=== PATIENT | female | born 1970 | race Caucasian/White ===

== ENCOUNTER 2018-01-30 21:42 | Emergency (ER) | payer BC ==
[~2018-01-30] VITALS: Ht 160 cm; Wt 53.0 kg
[~2018-01-30 21:42] MED LIST: CYCL-1 PO; SERT25TA PO
[2018-01-31] MEDS ORDERED: acetaminophen 325mg tablet PO ONE (00:35)
[2018-01-31] MEDS ORDERED: ondansetron/PF 4mg/2ml inj IV ONE (03:45)
[2018-01-31] MEDS ORDERED: benzonatate 100mg capsule PO ONE (03:45)
[2018-01-31] MEDS ORDERED: normal saline 1000ML IV soln IVB ONE ×2 (03:45)
[2018-01-31] MEDS ORDERED: ibuprofen 200mg tablet PO ONE (04:05)
[2018-01-31 04:36] LABS: BASOPHILS % (AUTO) 0.3 % (0-1); EOSINOPHILS # (AUTO) 0.1 X10'3 (0-0.9); EOSINOPHILS % (AUTO) 1.4 % (0-6); HEMATOCRIT 37.3 % (35.0-45.0); HEMOGLOBIN 13.1 g/dl (12.0-16.0); LYMPHOCYTES # (AUTO) 0.9 X10'3 (1.1-4.8); LYMPHOCYTES % (AUTO) 14.2 % (21-51); MEAN CORPUSCULAR HEMOGLOBIN 32.3 PG (27.0-31.0); MEAN CORPUSCULAR HGB CONC 35.3 % (33.0-36.5); MEAN CORPUSCULAR VOLUME 91.4 FL (78-98); MEAN PLATELET VOLUME 7.1 FL (7.4-10.4); MONOCYTES # (AUTO) 0.7 X10'3 (0-0.9); NEUTROPHILS # (AUTO) 4.9 X10'3 (1.8-7.7); NEUTROPHILS % (AUTO) 74.1 % (42-75); PLATELET COUNT 332 X10'3 (140-440); RED BLOOD COUNT 4.08 X10'6 (4.20-5.60); RED CELL DISTRIBUTION WIDTH 13.1 % (11.5-14.5); WHITE BLOOD COUNT 6.6 X10'3 (4.5-11.0)
[2018-01-31 04:47] LABS: HCG SERUM QL NEGATIVE
[2018-01-31 04:53] LABS: ALANINE AMINOTRANSFERASE 84 U/L (12-78); ALBUMIN 3.3 G/DL (3.4-5.0); ALBUMIN/GLOBULIN RATIO 0.9 (1.1-1.5); ALKALINE PHOSPHATASE 59 IU/L (46-116); ANION GAP 11 (8-16); ASPARTATE AMINO TRANSFERASE 61 U/L (10-37); BILIRUBIN,TOTAL 0.5 MG/DL (0.1-1.0); BLOOD UREA NITROGEN 10 MG/DL (7-18); BUN/CREATININE RATIO 14.3 (6.6-38.0); CALCIUM 8.3 MG/DL (8.5-10.1); CHLORIDE 107 MMOL/L (99-107); GLUCOSE 97 MG/DL (70-104); LIPASE 108 U/L (73-393); POTASSIUM 3.4 MMOL/L (3.5-5.1); SODIUM 141 MMOL/L (135-145); TOTAL CARBON DIOXIDE 23.3 MMOL/L (24-32); TOTAL PROTEIN 6.8 G/DL (6.4-8.2); eGFR 90 ML/MIN
[2018-01-31 05:01] LABS: CLARITY,URINE CLEAR (Clear); COLOR,URINE STRAW (Yellow); GLUCOSE, URINE NEGATIVE (Neg); KETONES,URINE NEGATIVE (Neg); LEUKOCYTE ESTERASE ,URINE NEGATIVE (Neg); NITRITES, URINE NEGATIVE (Neg); OCCULT BLOOD,URINE NEGATIVE (Neg); PH,URINE 5.5 (4.8-8.0); PROTEIN,URINE NEGATIVE (Neg); UROBILINOGEN,URINE 0.2 E.U/dL (0.2-1.0)
[2018-01-31 05:04] LABS: UA COLLECTION TYPE CLN CATCH MIDSTREAM
[2018-01-31] MEDS ORDERED: MORPHINE 2MG in 2ml NS syringe IV PRN (05:45)
[2018-01-31] MEDS ORDERED: oseltamivir phos 75mg capsule PO ONE (05:55)
[2018-01-31] MEDS ORDERED: oxyCODONE IR 5mg (immed. release) tablet PO ONE (06:05)
[2018-01-31] MEDS ORDERED: BENZ-16 PO (06:05)
[2018-01-31] MEDS ORDERED: TAM75C PO (06:05)
[2018-01-31] MEDS ORDERED: ONDA8TAB13 PO (06:05)
[2018-01-31 06:35] VITALS: BP 110/62
== END 2018-01-31 06:41 | disposition home or self-care (01) ==
LOC: ER 21:43
DX: J09.X2 Influenza due to identified novel influenza A virus with other respiratory manifestations (principal); Z88.6 Allergy status to analgesic agent; Z79.899 Other long term (current) drug therapy
CPT/HCPCS: 36415; 71046; 80053; 81003; 83605; 83690; 84703; 85025; 87040; 87502; 87503; 96361; 96374; 99285; J2405; J7030

== ENCOUNTER 2018-04-01 11:00 | Inpatient (IN) | payer BC ==
[2018-04-01] VITALS (18 sets, daily range): BP systolic 100–124; BP diastolic 64–75
[~2018-04-01] VITALS: Ht 160 cm; Wt 58.0 kg
[~2018-04-01 11:00] MED LIST changes: +ONDA8TAB13 PO
[2018-04-01 11:34] LABS: CLARITY,URINE CLEAR (Clear); COLOR,URINE STRAW (Yellow); GLUCOSE, URINE NEGATIVE (Neg); KETONES,URINE 15 mg/dl (Neg); LEUKOCYTE ESTERASE ,URINE NEGATIVE (Neg); NITRITES, URINE NEGATIVE (Neg); OCCULT BLOOD,URINE NEGATIVE (Neg); PROTEIN,URINE NEGATIVE (Neg); URINE HCG NEGATIVE (NEG); UROBILINOGEN,URINE 0.2 E.U/dL (0.2-1.0)
[2018-04-01 11:36] LABS: UA COLLECTION TYPE CLN CATCH MIDSTREAM
[2018-04-01 11:37] LABS: BASOPHILS # (AUTO) 0.1 X10'3 (0-0.2); BASOPHILS % (AUTO) 0.3 % (0-1); EOSINOPHILS % (AUTO) 0 % (0-6); HEMATOCRIT 38.8 % (35.0-45.0); HEMOGLOBIN 13.3 g/dl (12.0-16.0); LYMPHOCYTES # (AUTO) 1.3 X10'3 (1.1-4.8); LYMPHOCYTES % (AUTO) 6.8 % (21-51); MEAN CORPUSCULAR HEMOGLOBIN 32.2 PG (27.0-31.0); MEAN CORPUSCULAR HGB CONC 34.3 % (33.0-36.5); MONOCYTES # (AUTO) 0.7 X10'3 (0-0.9); MONOCYTES % (AUTO) 3.7 % (2-12); NEUTROPHILS # (AUTO) 16.9 X10'3 (1.8-7.7); NEUTROPHILS % (AUTO) 89.2 % (42-75); PLATELET COUNT 421 X10'3 (140-440); RED BLOOD COUNT 4.13 X10'6 (4.20-5.60); RED CELL DISTRIBUTION WIDTH 13.1 % (11.5-14.5); WHITE BLOOD COUNT 18.9 X10'3 (4.5-11.0)
[2018-04-01] MEDS ORDERED: normal saline 1000ML IV soln IV ONE (11:40)
[2018-04-01 11:45] LABS: INR 1.1 INR; PROTHROMBIN TIME 11.5 SECONDS (9.0-12.0)
[2018-04-01 11:50] LABS: ALANINE AMINOTRANSFERASE 27 U/L (12-78); ALBUMIN 3.4 G/DL (3.4-5.0); ALKALINE PHOSPHATASE 66 IU/L (46-116); ANION GAP 8 (8-16); ASPARTATE AMINO TRANSFERASE 22 U/L (10-37); BILIRUBIN,TOTAL 1.2 MG/DL (0.1-1.0); BLOOD UREA NITROGEN 9 MG/DL (7-18); BUN/CREATININE RATIO 12.9 (6.6-38.0); CALCIUM 8.2 MG/DL (8.5-10.1); CHLORIDE 105 MMOL/L (99-107); GLUCOSE 94 MG/DL (70-104); POTASSIUM 3.8 MMOL/L (3.5-5.1); SODIUM 138 MMOL/L (135-145); TOTAL CARBON DIOXIDE 25.5 MMOL/L (24-32); TOTAL PROTEIN 6.9 G/DL (6.4-8.2); eGFR 90 ML/MIN
[2018-04-01] MEDS ORDERED: HYDROmorphone 1 mg/ml syringe IV ONE ×2 (12:00→15:30)
[2018-04-01] MEDS ORDERED: normal saline 1000ML IV soln IVB ONE (12:00)
[2018-04-01] MEDS ORDERED: ondansetron/PF 4mg/2ml inj IV ONE (12:00)
[2018-04-01] MEDS ORDERED: metroNIDAZOLE-Flagyl 500mg/NS 100 ML IV STA (14:10)
[2018-04-01] MEDS ORDERED: levoFLOXACIN-Levaquin 750MG/D5 150 ML IV STA (14:10)
[2018-04-01] MEDS: normal saline 1000ml 1,000 ML IV SCH (15:05)
[2018-04-01] MEDS ORDERED: HYDROmorphone inj. 0.5 MG/0.5 ML DISP.SYRIN IV PRN (15:05)
[2018-04-01] MEDS ORDERED: mag hydrox/Alum hydrox/simeth 30ml oral suspension PO PRN (15:05)
[2018-04-01] MEDS ORDERED: magnesium hydroxide 30ml (MOM) UD suspension PO PRN (15:05)
[2018-04-01] MEDS ORDERED: LIDOcaine 1% 30ml preserv. free vial ONE (15:37)
[2018-04-01] MEDS ORDERED: ROPIVAcaine 0.5% (5mg/ml) 30ml vial ONE (15:37)
[2018-04-01] MEDS ORDERED: BUPIVAcaine/PF 2.5mg/ml (0.25%) 10ml vial ONE (15:37)
[2018-04-01] MEDS ORDERED: metroNIDAZOLE-Flagyl 500mg/NS 100 ML IV SCH (16:00)
[2018-04-01] MEDS ORDERED: propofol inj 20 ML IV ONE (16:21)
[2018-04-01] MEDS ORDERED: LIDOcaine 2% (20mg/ml) 5ml vial ONE (16:21)
[2018-04-01] MEDS ORDERED: succinylcholine 20mg/ml inj IV ONE (16:23)
[2018-04-01] MEDS ORDERED: midazolam 2 mg/2 ml injection ONE (16:24)
[2018-04-01] MEDS ORDERED: fentaNYL /PF 50mcg/ml 5ml ampule ONE (16:24)
[2018-04-01] MEDS ORDERED: dexamethasone sod phosphate 10mg/ml inj ONE (16:31)
[2018-04-01] MEDS ORDERED: sevoflurane 250ml liquid IH ONE (16:31)
[2018-04-01] MEDS ORDERED: neostigmine methylsulfate 1 MG/ML 10ml vial ONE (17:29)
[2018-04-01] MEDS ORDERED: fentaNYL/PF 50MCG/1 ML 2ML syringe ONE (18:23)
[2018-04-01] MEDS ORDERED: glycopyrrolate 0.2mg/ml inj ONE (18:27)
[2018-04-01] MEDS ORDERED: CADD PCA waste documentation MC PRN (18:45)
[2018-04-01] MEDS ORDERED: naloxone 0.4 mg/ml inj IV PRN (18:45)
[2018-04-01] MEDS: HYDROmorphone/NS 1 mg/ml CADD 50 ML IV SCH ×4 (18:45→23:00)
[2018-04-01] MEDS ORDERED: meperidine/PF 25mg/ml syringe ONE (18:52)
[2018-04-01] MEDS ORDERED: ringers solution, lacted 1,000 ML IV SCH (18:53)
[2018-04-01] MEDS ORDERED: ondansetron/PF 4mg/2ml inj IV PRN (18:55)
[2018-04-01] MEDS ORDERED: meperidine/PF 25mg/ml syringe IV PRN (18:55)
[2018-04-01] MEDS ORDERED: acetaminophen 1,000mg/100ml IV 100 ML IV PRN (18:55)
[2018-04-01] MEDS ORDERED: fentaNYL/PF 50MCG/1 ML 2ML syringe IV PRN ×2 (18:55)
[2018-04-01] MEDS: heparin, porcine 5000 units/ml vial SQ SCH (21:32)
[2018-04-01] MEDS: acetaminophen 325mg tablet PO PRN (23:19)
[2018-04-02] VITALS: BP 106/75
[2018-04-02 00:30] VITALS: BP 123/70
[2018-04-02] MEDS: HYDROmorphone/NS 1 mg/ml CADD 50 ML IV SCH ×12 (01:00→23:00)
[2018-04-02] MEDS: normal saline 1000ml 1,000 ML IV SCH ×3 (02:09→14:55)
[2018-04-02 04:00] VITALS: BP 101/58
[2018-04-02] MEDS: ondansetron/PF 4mg/2ml inj IV PRN (04:24)
[2018-04-02 05:57] LABS: BASOPHILS % (AUTO) 0.2 % (0-1); EOSINOPHILS % (AUTO) 0.1 % (0-6); HEMATOCRIT 33.6 % (35.0-45.0); HEMOGLOBIN 11.6 g/dl (12.0-16.0); LYMPHOCYTES # (AUTO) 0.5 X10'3 (1.1-4.8); LYMPHOCYTES % (AUTO) 3.8 % (21-51); MEAN CORPUSCULAR HGB CONC 34.5 % (33.0-36.5); MEAN CORPUSCULAR VOLUME 92.7 FL (78-98); MEAN PLATELET VOLUME 7.1 FL (7.4-10.4); MONOCYTES # (AUTO) 0.7 X10'3 (0-0.9); MONOCYTES % (AUTO) 4.8 % (2-12); NEUTROPHILS # (AUTO) 12.8 X10'3 (1.8-7.7); NEUTROPHILS % (AUTO) 91.1 % (42-75); PLATELET COUNT 327 X10'3 (140-440); RED BLOOD COUNT 3.63 X10'6 (4.20-5.60); RED CELL DISTRIBUTION WIDTH 13.3 % (11.5-14.5)
[2018-04-02 06:24] LABS: ALANINE AMINOTRANSFERASE 29 U/L (12-78); ALBUMIN 2.4 G/DL (3.4-5.0); ALBUMIN/GLOBULIN RATIO 0.8 (1.1-1.5); ALKALINE PHOSPHATASE 53 IU/L (46-116); ANION GAP 7 (8-16); ASPARTATE AMINO TRANSFERASE 24 U/L (10-37); BLOOD UREA NITROGEN 4 MG/DL (7-18); BUN/CREATININE RATIO 6.2 (6.6-38.0); CALCIUM 7.8 MG/DL (8.5-10.1); CHLORIDE 106 MMOL/L (99-107); CREATININE 0.65 MG/DL (0.40-0.90); GLUCOSE 119 MG/DL (70-104); POTASSIUM 4.1 MMOL/L (3.5-5.1); SODIUM 138 MMOL/L (135-145); TOTAL CARBON DIOXIDE 24.8 MMOL/L (24-32); TOTAL PROTEIN 5.5 G/DL (6.4-8.2); eGFR > 90 ML/MIN
[2018-04-02] MEDS: acetaminophen 325mg tablet PO PRN ×3 (06:57→21:34)
[2018-04-02 07:00] VITALS: BP 107/64
[2018-04-02] MEDS ORDERED: levoFLOXACIN-Levaquin 750MG/D5 150 ML IV SCH (08:00)
[2018-04-02] MEDS ORDERED: GABA-530 (08:30)
[2018-04-02] MEDS: piperacillin/tazo 3.375gm/50ml 50 ML IV SCH ×3 (09:00→16:06)
[2018-04-02] MEDS: heparin, porcine 5000 units/ml vial SQ SCH ×2 (09:00→21:33)
[2018-04-02 12:00] VITALS: BP 98/58
[2018-04-02 19:00] VITALS: BP 104/69
[2018-04-02] MEDS: lactobacillus rhamnosus 10,000 MMU CELLS/CAPSULE PO SCH (21:33)
[2018-04-02] MEDS: potassium CL 20mEq in D5-1/2NS 1,000 ML IV SCH (21:42)
[2018-04-03] VITALS: BP 112/61
[2018-04-03] MEDS: piperacillin/tazo 3.375gm/50ml 50 ML IV SCH ×3 (00:08→16:21)
[2018-04-03] MEDS: HYDROmorphone/NS 1 mg/ml CADD 50 ML IV SCH ×12 (01:00→23:00)
[2018-04-03] MEDS: acetaminophen 325mg tablet PO PRN ×2 (04:59→16:20)
[2018-04-03 05:32] LABS: BASOPHILS % (AUTO) 0.1 % (0-1); EOSINOPHILS # (AUTO) 0.6 X10'3 (0-0.9); EOSINOPHILS % (AUTO) 6.6 % (0-6); HEMATOCRIT 29.7 % (35.0-45.0); HEMOGLOBIN 10.2 g/dl (12.0-16.0); LYMPHOCYTES % (AUTO) 11.2 % (21-51); MEAN CORPUSCULAR HGB CONC 34.2 % (33.0-36.5); MEAN CORPUSCULAR VOLUME 93.6 FL (78-98); MEAN PLATELET VOLUME 6.9 FL (7.4-10.4); MONOCYTES # (AUTO) 0.5 X10'3 (0-0.9); MONOCYTES % (AUTO) 5.9 % (2-12); NEUTROPHILS # (AUTO) 6.6 X10'3 (1.8-7.7); NEUTROPHILS % (AUTO) 76.2 % (42-75); PLATELET COUNT 323 X10'3 (140-440); RED BLOOD COUNT 3.18 X10'6 (4.20-5.60); RED CELL DISTRIBUTION WIDTH 13.6 % (11.5-14.5); WHITE BLOOD COUNT 8.7 X10'3 (4.5-11.0)
[2018-04-03 05:53] LABS: ALANINE AMINOTRANSFERASE 21 U/L (12-78); ALBUMIN 2.1 G/DL (3.4-5.0); ALBUMIN/GLOBULIN RATIO 0.7 (1.1-1.5); ALKALINE PHOSPHATASE 51 IU/L (46-116); ANION GAP 7 (8-16); ASPARTATE AMINO TRANSFERASE 19 U/L (10-37); BILIRUBIN,TOTAL 0.4 MG/DL (0.1-1.0); BLOOD UREA NITROGEN 4 MG/DL (7-18); BUN/CREATININE RATIO 5.5 (6.6-38.0); CALCIUM 7.6 MG/DL (8.5-10.1); CHLORIDE 106 MMOL/L (99-107); CREATININE 0.73 MG/DL (0.40-0.90); GLUCOSE 112 MG/DL (70-104); POTASSIUM 3.2 MMOL/L (3.5-5.1); SODIUM 139 MMOL/L (135-145); TOTAL CARBON DIOXIDE 26.5 MMOL/L (24-32); TOTAL PROTEIN 5.1 G/DL (6.4-8.2); eGFR 86 ML/MIN
[2018-04-03] MEDS: potassium CL 20mEq in D5-1/2NS 1,000 ML IV SCH ×3 (06:15→21:40)
[2018-04-03] MEDS: lactobacillus rhamnosus 10,000 MMU CELLS/CAPSULE PO SCH ×2 (07:21→21:40)
[2018-04-03] MEDS: heparin, porcine 5000 units/ml vial SQ SCH ×2 (07:22→21:41)
[2018-04-03] MEDS ORDERED: Potassium Cl inj 40 MEQ in normal saline 500ml IV soln 480 ML IV ONE (07:55)
[2018-04-03 08:00] VITALS: BP 112/67
[2018-04-03 11:00] VITALS: BP 102/66
[2018-04-03] MEDS: ondansetron/PF 4mg/2ml inj IV PRN (15:01)
[2018-04-04] VITALS: BP 103/63
[2018-04-04] MEDS: piperacillin/tazo 3.375gm/50ml 50 ML IV SCH ×4 (00:43→23:20)
[2018-04-04] MEDS: acetaminophen 325mg tablet PO PRN (00:44)
[2018-04-04] MEDS: HYDROmorphone/NS 1 mg/ml CADD 50 ML IV SCH ×12 (01:00→23:00)
[2018-04-04 05:42] LABS: BASOPHILS % (AUTO) 0.1 % (0-1); EOSINOPHILS # (AUTO) 0.6 X10'3 (0-0.9); EOSINOPHILS % (AUTO) 7.2 % (0-6); HEMATOCRIT 29.9 % (35.0-45.0); HEMOGLOBIN 10.2 g/dl (12.0-16.0); LYMPHOCYTES # (AUTO) 0.9 X10'3 (1.1-4.8); LYMPHOCYTES % (AUTO) 11.1 % (21-51); MEAN CORPUSCULAR HEMOGLOBIN 31.9 PG (27.0-31.0); MEAN CORPUSCULAR HGB CONC 34.1 % (33.0-36.5); MEAN CORPUSCULAR VOLUME 93.5 FL (78-98); MEAN PLATELET VOLUME 7.2 FL (7.4-10.4); MONOCYTES # (AUTO) 0.5 X10'3 (0-0.9); MONOCYTES % (AUTO) 6.7 % (2-12); NEUTROPHILS # (AUTO) 6.2 X10'3 (1.8-7.7); NEUTROPHILS % (AUTO) 74.9 % (42-75); PLATELET COUNT 358 X10'3 (140-440); RED BLOOD COUNT 3.19 X10'6 (4.20-5.60); RED CELL DISTRIBUTION WIDTH 13.1 % (11.5-14.5); WHITE BLOOD COUNT 8.2 X10'3 (4.5-11.0)
[2018-04-04 06:01] LABS: ALANINE AMINOTRANSFERASE 24 U/L (12-78); ALBUMIN/GLOBULIN RATIO 0.6 (1.1-1.5); ALKALINE PHOSPHATASE 52 IU/L (46-116); ANION GAP 5 (8-16); ASPARTATE AMINO TRANSFERASE 21 U/L (10-37); BILIRUBIN,TOTAL 0.4 MG/DL (0.1-1.0); BLOOD UREA NITROGEN 3 MG/DL (7-18); BUN/CREATININE RATIO 5.1 (6.6-38.0); CALCIUM 7.5 MG/DL (8.5-10.1); CHLORIDE 107 MMOL/L (99-107); CREATININE 0.59 MG/DL (0.40-0.90); GLUCOSE 110 MG/DL (70-104); POTASSIUM 3.4 MMOL/L (3.5-5.1); SODIUM 138 MMOL/L (135-145); TOTAL CARBON DIOXIDE 26.3 MMOL/L (24-32); TOTAL PROTEIN 5.2 G/DL (6.4-8.2); eGFR > 90 ML/MIN
[2018-04-04] MEDS: heparin, porcine 5000 units/ml vial SQ SCH ×2 (07:00→19:28)
[2018-04-04] MEDS: lactobacillus rhamnosus 10,000 MMU CELLS/CAPSULE PO SCH ×2 (07:00→19:28)
[2018-04-04 07:10] VITALS: BP 113/68
[2018-04-04] MEDS ORDERED: potassium Cl 20 mEq SR tablet PO PRN (09:50)
[2018-04-04] MEDS ORDERED: magnesium 4gm in 100ml NS 100 ML IV PRN (09:50)
[2018-04-04] MEDS ORDERED: potassium Cl 40MEQ/NS 500ml 500 ML IV PRN ×2 (09:50)
[2018-04-04] MEDS ORDERED: magnesium Cl slow-release 64mg tablet PO PRN (09:50)
[2018-04-04] MEDS ORDERED: magnesium 2GM in 50ml NS 50 ML IV PRN (09:50)
[2018-04-04] MEDS: potassium Cl 20 mEq SR tablet PO PRN ×3 (11:19→20:42)
[2018-04-04 11:47] VITALS: BP 113/68
[2018-04-04] MEDS: potassium CL 20mEq in D5-1/2NS 1,000 ML IV SCH ×2 (12:15→19:28)
[2018-04-04] MEDS ORDERED: methylnaltrexone br 12mg/0.6ml inj***SubQ only SQ ONE (12:45)
[2018-04-04] MEDS ORDERED: HYDROmorphone 1 mg/ml syringe IV PRN (16:07)
[2018-04-04 18:00] VITALS: BP 106/69
[2018-04-05] VITALS: BP 106/64
[2018-04-05] MEDS: HYDROmorphone/NS 1 mg/ml CADD 50 ML IV SCH ×12 (01:00→23:00)
[2018-04-05] MEDS: acetaminophen 325mg tablet PO PRN ×2 (02:27→11:59)
[2018-04-05 04:55] LABS: BASOPHILS % (AUTO) 0.4 % (0-1); EOSINOPHILS # (AUTO) 0.6 X10'3 (0-0.9); EOSINOPHILS % (AUTO) 9.1 % (0-6); HEMATOCRIT 32.2 % (35.0-45.0); HEMOGLOBIN 10.9 g/dl (12.0-16.0); LYMPHOCYTES # (AUTO) 1.5 X10'3 (1.1-4.8); LYMPHOCYTES % (AUTO) 22.7 % (21-51); MEAN CORPUSCULAR HEMOGLOBIN 31.7 PG (27.0-31.0); MEAN CORPUSCULAR VOLUME 93.1 FL (78-98); MEAN PLATELET VOLUME 7.1 FL (7.4-10.4); MONOCYTES # (AUTO) 0.5 X10'3 (0-0.9); MONOCYTES % (AUTO) 7.5 % (2-12); NEUTROPHILS # (AUTO) 3.9 X10'3 (1.8-7.7); NEUTROPHILS % (AUTO) 60.3 % (42-75); PLATELET COUNT 419 X10'3 (140-440); RED BLOOD COUNT 3.46 X10'6 (4.20-5.60); RED CELL DISTRIBUTION WIDTH 13.1 % (11.5-14.5); WHITE BLOOD COUNT 6.5 X10'3 (4.5-11.0)
[2018-04-05 05:30] LABS: ALANINE AMINOTRANSFERASE 38 U/L (12-78); ALBUMIN 2.1 G/DL (3.4-5.0); ALBUMIN/GLOBULIN RATIO 0.6 (1.1-1.5); ALKALINE PHOSPHATASE 61 IU/L (46-116); ANION GAP 6 (8-16); ASPARTATE AMINO TRANSFERASE 38 U/L (10-37); BILIRUBIN,TOTAL 0.4 MG/DL (0.1-1.0); BLOOD UREA NITROGEN 2 MG/DL (7-18); BUN/CREATININE RATIO 2.9 (6.6-38.0); CALCIUM 8.2 MG/DL (8.5-10.1); CHLORIDE 109 MMOL/L (99-107); CREATININE 0.69 MG/DL (0.40-0.90); GLUCOSE 104 MG/DL (70-104); MAGNESIUM 1.6 MG/DL (1.5-2.4); POTASSIUM 4.2 MMOL/L (3.5-5.1); SODIUM 143 MMOL/L (135-145); TOTAL CARBON DIOXIDE 28.1 MMOL/L (24-32); TOTAL PROTEIN 5.4 G/DL (6.4-8.2); eGFR > 90 ML/MIN
[2018-04-05 07:00] VITALS: BP 102/62
[2018-04-05] MEDS: piperacillin/tazo 3.375gm/50ml 50 ML IV SCH ×3 (08:03→23:39)
[2018-04-05] MEDS: lactobacillus rhamnosus 10,000 MMU CELLS/CAPSULE PO SCH ×2 (08:03→20:55)
[2018-04-05] MEDS: heparin, porcine 5000 units/ml vial SQ SCH ×2 (08:04→20:55)
[2018-04-05 12:04] VITALS: BP 115/68
[2018-04-05] MEDS: potassium CL 20mEq in D5-1/2NS 1,000 ML IV SCH (15:48)
[2018-04-05 18:00] VITALS: BP 106/64
[2018-04-05] MEDS ORDERED: magnesium hydroxide 30ml (MOM) UD suspension PO ONE (18:25)
[2018-04-06] VITALS (7 sets, daily range): BP systolic 79–108; BP diastolic 48–75
[2018-04-06] MEDS: HYDROmorphone/NS 1 mg/ml CADD 50 ML IV SCH ×7 (01:00→13:00)
[2018-04-06 05:15] LABS: BASOPHILS % (AUTO) 0.3 % (0-1); EOSINOPHILS # (AUTO) 0.6 X10'3 (0-0.9); EOSINOPHILS % (AUTO) 8.7 % (0-6); HEMATOCRIT 34.2 % (35.0-45.0); HEMOGLOBIN 11.5 g/dl (12.0-16.0); LYMPHOCYTES # (AUTO) 1.7 X10'3 (1.1-4.8); LYMPHOCYTES % (AUTO) 23.5 % (21-51); MEAN CORPUSCULAR HEMOGLOBIN 31.5 PG (27.0-31.0); MEAN CORPUSCULAR HGB CONC 33.7 % (33.0-36.5); MEAN CORPUSCULAR VOLUME 93.3 FL (78-98); MEAN PLATELET VOLUME 7.1 FL (7.4-10.4); MONOCYTES # (AUTO) 0.5 X10'3 (0-0.9); MONOCYTES % (AUTO) 7.1 % (2-12); NEUTROPHILS # (AUTO) 4.4 X10'3 (1.8-7.7); NEUTROPHILS % (AUTO) 60.4 % (42-75); PLATELET COUNT 494 X10'3 (140-440); RED BLOOD COUNT 3.66 X10'6 (4.20-5.60); RED CELL DISTRIBUTION WIDTH 13.3 % (11.5-14.5); WHITE BLOOD COUNT 7.3 X10'3 (4.5-11.0)
[2018-04-06 05:37] LABS: ALANINE AMINOTRANSFERASE 101 U/L (12-78); ALBUMIN 2.3 G/DL (3.4-5.0); ALBUMIN/GLOBULIN RATIO 0.7 (1.1-1.5); ALKALINE PHOSPHATASE 79 IU/L (46-116); ANION GAP 6 (8-16); ASPARTATE AMINO TRANSFERASE 101 U/L (10-37); BILIRUBIN,TOTAL 0.4 MG/DL (0.1-1.0); BLOOD UREA NITROGEN 3 MG/DL (7-18); BUN/CREATININE RATIO 4.7 (6.6-38.0); CALCIUM 8.3 MG/DL (8.5-10.1); CHLORIDE 105 MMOL/L (99-107); CREATININE 0.64 MG/DL (0.40-0.90); GLUCOSE 101 MG/DL (70-104); MAGNESIUM 1.9 MG/DL (1.5-2.4); POTASSIUM 3.7 MMOL/L (3.5-5.1); SODIUM 139 MMOL/L (135-145); TOTAL CARBON DIOXIDE 28.4 MMOL/L (24-32); TOTAL PROTEIN 5.7 G/DL (6.4-8.2); eGFR > 90 ML/MIN
[2018-04-06] MEDS: piperacillin/tazo 3.375gm/50ml 50 ML IV SCH ×3 (07:32→23:58)
[2018-04-06] MEDS: heparin, porcine 5000 units/ml vial SQ SCH ×2 (07:33→20:09)
[2018-04-06] MEDS: lactobacillus rhamnosus 10,000 MMU CELLS/CAPSULE PO SCH ×2 (07:33→20:08)
[2018-04-06] MEDS ORDERED: magnesium hydroxide 30ml (MOM) UD suspension PO ONE (10:55)
[2018-04-06] MEDS: ondansetron/PF 4mg/2ml inj IV PRN (13:48)
[2018-04-06] MEDS ORDERED: oxyCODONE/APAP 5-325mg tablet PO PRN (14:40)
[2018-04-06] MEDS: potassium CL 20mEq in D5-1/2NS 1,000 ML IV SCH (14:53)
[2018-04-06] MEDS: ketorolac tromethamine 15mg/ml inj. IV SCH (20:08)
[2018-04-06] MEDS: oxyCODONE/APAP 5-325mg tablet PO PRN (21:13)
[2018-04-07] VITALS: BP 94/58
[2018-04-07] MEDS: ketorolac tromethamine 15mg/ml inj. IV SCH ×2 (01:56→08:07)
[2018-04-07 02:08] VITALS: BP 81/42
[2018-04-07 05:59] LABS: MAGNESIUM 2.1 MG/DL (1.5-2.4)
[2018-04-07 07:36] VITALS: BP 86/46
[2018-04-07] MEDS ORDERED: normal saline 1000ml 1,000 ML IV ONE (08:00)
[2018-04-07] MEDS: oxyCODONE/APAP 5-325mg tablet PO PRN ×2 (08:05→12:59)
[2018-04-07] MEDS: piperacillin/tazo 3.375gm/50ml 50 ML IV SCH (08:06)
[2018-04-07] MEDS: heparin, porcine 5000 units/ml vial SQ SCH (08:06)
[2018-04-07] MEDS: lactobacillus rhamnosus 10,000 MMU CELLS/CAPSULE PO SCH (08:06)
[2018-04-07 11:00] VITALS: BP 86/43
[2018-04-07] MEDS ORDERED: PER5325T PO (11:07)
== END 2018-04-07 14:05 | disposition home or self-care (01) | DRG 330 ==
LOC: ER 11:01 → ED HOLD 15:05 → SUR 3N 21:30
PROVIDERS: ADMIT Internal Medicine; ATTEND Surgery
PROC: 0DTN0ZZ Resection of Sigmoid Colon, Open Approach (ICD-10-PCS; principal; 2018-04-01 16:31)
DX: K57.20 Diverticulitis of large intestine with perforation and abscess without bleeding (principal); D72.829 Elevated white blood cell count, unspecified; E87.6 Hypokalemia; Z79.899 Other long term (current) drug therapy; Z86.010 Personal history of colon polyps; Z90.710 Acquired absence of both cervix and uterus; Z88.6 Allergy status to analgesic agent; Z88.5 Allergy status to narcotic agent; Z90.49 Acquired absence of other specified parts of digestive tract
CPT/HCPCS: 96361; 96365; 96375; 99285; Z7506; 36415; 71045; 80053; 81003; 81025; 83605; 83735; 84132; 84145; 85025; 85610; 87040; 87070; 93005; A6253; A6449; A7000; C1758; J0131; J0330; J1100; J1170; J1644; J1885; J1956; J2001; J2175; J2250; J2405; J2543; J2704; J2710; J2795; J3010; J3480; J3490; J7030; J7120

== ENCOUNTER 2018-05-16 13:27 | Emergency (ER) | payer BC ==
[~2018-05-16] VITALS: Ht 160 cm; Wt 57.2 kg
[~2018-05-16 13:27] MED LIST changes: -CYCL-1 PO; +GABA-530; -ONDA8TAB13 PO; +PER5325T PO; -SERT25TA PO
[2018-05-16 13:34] VITALS: BP 143/82
[2018-05-16 14:06] LABS: BASOPHILS % (AUTO) 0.4 % (0-1); EOSINOPHILS # (AUTO) 0.1 X10'3 (0-0.9); EOSINOPHILS % (AUTO) 2.1 % (0-6); HEMATOCRIT 41.8 % (35.0-45.0); HEMOGLOBIN 14.2 g/dl (12.0-16.0); LYMPHOCYTES % (AUTO) 29.9 % (21-51); MEAN CORPUSCULAR HEMOGLOBIN 32.1 PG (27.0-31.0); MEAN CORPUSCULAR VOLUME 94.3 FL (78-98); MEAN PLATELET VOLUME 7.1 FL (7.4-10.4); MONOCYTES # (AUTO) 0.5 X10'3 (0-0.9); MONOCYTES % (AUTO) 7.7 % (2-12); NEUTROPHILS % (AUTO) 59.9 % (42-75); PLATELET COUNT 493 X10'3 (140-440); RED BLOOD COUNT 4.43 X10'6 (4.20-5.60); RED CELL DISTRIBUTION WIDTH 13.3 % (11.5-14.5); WHITE BLOOD COUNT 6.7 X10'3 (4.5-11.0)
[2018-05-16 14:20] LABS: ALANINE AMINOTRANSFERASE 23 U/L (12-78); ALBUMIN 3.8 G/DL (3.4-5.0); ALBUMIN/GLOBULIN RATIO 1.1 (1.1-1.5); ALKALINE PHOSPHATASE 69 IU/L (46-116); ANION GAP 7 (8-16); ASPARTATE AMINO TRANSFERASE 12 U/L (10-37); BILIRUBIN,TOTAL 0.8 MG/DL (0.1-1.0); BLOOD UREA NITROGEN 12 MG/DL (7-18); BUN/CREATININE RATIO 15.6 (6.6-38.0); CALCIUM 8.5 MG/DL (8.5-10.1); CHLORIDE 105 MMOL/L (99-107); CREATININE 0.77 MG/DL (0.40-0.90); GLUCOSE 91 MG/DL (70-104); POTASSIUM 3.9 MMOL/L (3.5-5.1); SODIUM 139 MMOL/L (135-145); TOTAL CARBON DIOXIDE 27.1 MMOL/L (24-32); TOTAL PROTEIN 7.2 G/DL (6.4-8.2); eGFR 81 ML/MIN
[2018-05-16 14:26] LABS: URINE HCG NEGATIVE (NEG)
[2018-05-16 14:27] LABS: CLARITY,URINE CLEAR (Clear); COLOR,URINE YELLOW (Yellow); GLUCOSE, URINE NEGATIVE (Neg); KETONES,URINE NEGATIVE (Neg); LEUKOCYTE ESTERASE ,URINE NEGATIVE (Neg); NITRITES, URINE NEGATIVE (Neg); OCCULT BLOOD,URINE NEGATIVE (Neg); PH,URINE 5.5 (4.8-8.0); PROTEIN,URINE NEGATIVE (Neg); UROBILINOGEN,URINE 0.2 E.U/dL (0.2-1.0)
[2018-05-16 14:29] LABS: UA COLLECTION TYPE CLN CATCH MIDSTREAM
== END 2018-05-16 15:39 | disposition home or self-care (01) ==
LOC: ER 13:27
DX: S86.912A Strain of unspecified muscle(s) and tendon(s) at lower leg level, left leg, initial encounter (principal); Z88.8 Allergy status to other drugs, medicaments and biological substances; Z88.5 Allergy status to narcotic agent; Z79.899 Other long term (current) drug therapy; Z90.49 Acquired absence of other specified parts of digestive tract; X58.XXXA Exposure to other specified factors, initial encounter; Y93.89 Activity, other specified; Y92.89 Other specified places as the place of occurrence of the external cause; Y99.8 Other external cause status
CPT/HCPCS: 36415; 80053; 81003; 81025; 85025; 93971; 99285

== ENCOUNTER 2020-01-16 16:54 | Emergency (ER) | payer BC ==
[~2020-01-16] VITALS: Ht 160 cm; Wt 54.5 kg
[2020-01-16] MEDS ORDERED: iohexol 300mg/ml 100ml inj. ONE (18:13)
[2020-01-16 18:35] LABS: BASOPHILS # (AUTO) 0.1 X10'3 (0-0.2); BASOPHILS % (AUTO) 0.9 % (0-1); EOSINOPHILS # (AUTO) 0.2 X10'3 (0-0.9); EOSINOPHILS % (AUTO) 2.3 % (0-6); HEMATOCRIT 39.2 % (35.0-45.0); HEMOGLOBIN 13.4 g/dl (12.0-16.0); LYMPHOCYTES % (AUTO) 26.7 % (21-51); MEAN CORPUSCULAR HEMOGLOBIN 32.6 PG (27.0-31.0); MEAN CORPUSCULAR HGB CONC 34.2 g/dL (33.0-36.5); MEAN CORPUSCULAR VOLUME 95.3 FL (78-98); MEAN PLATELET VOLUME 6.9 FL (7.4-10.4); MONOCYTES # (AUTO) 0.7 X10'3 (0-0.9); MONOCYTES % (AUTO) 8.7 % (2-12); NEUTROPHILS # (AUTO) 4.6 X10'3 (1.8-7.7); NEUTROPHILS % (AUTO) 61.4 % (42-75); PLATELET COUNT 452 X10'3 (140-440); RED BLOOD COUNT 4.12 X10'6 (4.20-5.60); RED CELL DISTRIBUTION WIDTH 13.1 % (11.5-14.5); WHITE BLOOD COUNT 7.5 X10'3 (4.5-11.0)
[2020-01-16 18:53] LABS: CLARITY,URINE CLEAR (Clear); COLOR,URINE YELLOW (Yellow); GLUCOSE, URINE NEGATIVE (Neg); KETONES,URINE NEGATIVE (Neg); LEUKOCYTE ESTERASE ,URINE NEGATIVE (Neg); NITRITES, URINE NEGATIVE (Neg); OCCULT BLOOD,URINE NEGATIVE (Neg); PH,URINE 6.5 (4.8-8.0); PROTEIN,URINE NEGATIVE (Neg); UROBILINOGEN,URINE 0.2 E.U/dL (0.2-1.0)
[2020-01-16 18:54] LABS: ALANINE AMINOTRANSFERASE 23 U/L (12-78); ALBUMIN 3.7 G/DL (3.4-5.0); ALBUMIN/GLOBULIN RATIO 1.2 (1.1-1.5); ALKALINE PHOSPHATASE 59 IU/L (46-116); ANION GAP 9 (8-16); ASPARTATE AMINO TRANSFERASE 17 U/L (10-37); BILIRUBIN,TOTAL 0.6 MG/DL (0.1-1.0); BLOOD UREA NITROGEN 15 MG/DL (7-18); BUN/CREATININE RATIO 14.6 (6.6-38.0); CALCIUM 9.3 MG/DL (8.5-10.1); CHLORIDE 106 MMOL/L (99-107); CREATININE 1.03 MG/DL (0.40-0.90); GLUCOSE 97 MG/DL (70-104); POTASSIUM 3.7 MMOL/L (3.5-5.1); SODIUM 142 MMOL/L (135-145); TOTAL CARBON DIOXIDE 27.4 MMOL/L (24-32); TOTAL PROTEIN 6.8 G/DL (6.4-8.2); eGFR 57 ML/MIN
[2020-01-16 18:56] LABS: UA COLLECTION TYPE VOIDED
[2020-01-16] MEDS ORDERED: ketorolac trometh. 30mg/ml inj. IV ONE (19:10)
[2020-01-16] MEDS ORDERED: LIDO700A47 TD (20:02)
[2020-01-16] MEDS ORDERED: LIDO30CR23 TOP (20:02)
[2020-01-16 20:14] VITALS: BP 112/70
== END 2020-01-16 20:13 | disposition home or self-care (01) ==
LOC: ER 16:54
DX: R10.30 Lower abdominal pain, unspecified (principal); R19.00 Intra-abdominal and pelvic swelling, mass and lump, unspecified site; Z86.69 Personal history of other diseases of the nervous system and sense organs; Z88.2 Allergy status to sulfonamides; Z88.5 Allergy status to narcotic agent; Z88.6 Allergy status to analgesic agent; Z79.899 Other long term (current) drug therapy; Z90.49 Acquired absence of other specified parts of digestive tract
CPT/HCPCS: 36415; 74177; 80053; 81003; 84145; 85025; 96374; 99284; J1885; Q9967

== ENCOUNTER 2020-09-30 07:05 | Day surgery (SDC) | payer BC ==
[2020-09-24 14:02] LABS: BASOPHILS % (AUTO) 0.6 % (0-1); EOSINOPHILS # (AUTO) 0.1 X10'3 (0-0.9); EOSINOPHILS % (AUTO) 0.9 % (0-6); LYMPHOCYTES # (AUTO) 1.6 X10'3 (1.1-4.8); LYMPHOCYTES % (AUTO) 20.6 % (21-51); MEAN CORPUSCULAR HEMOGLOBIN 32.6 PG (27.0-31.0); MEAN CORPUSCULAR HGB CONC 34.3 g/dL (33.0-36.5); MEAN CORPUSCULAR VOLUME 94.8 FL (78-98); MEAN PLATELET VOLUME 7.2 FL (7.4-10.4); MONOCYTES # (AUTO) 0.6 X10'3 (0-0.9); MONOCYTES % (AUTO) 8.3 % (2-12); NEUTROPHILS # (AUTO) 5.4 X10'3 (1.8-7.7); NEUTROPHILS % (AUTO) 69.6 % (42-75); PRE OP HEMATOCRIT 38.6 % (35.0-45.0); PRE OP HEMOGLOBIN 13.3 g/dL (12.0-16.0); PRE OP PLATELET COUNT 446 X10'3 (140-440); RED BLOOD COUNT 4.07 X10'6 (4.20-5.60)
[2020-09-24 14:15] LABS: ALBUMIN 3.8 G/DL (3.4-5.0); ALBUMIN/GLOBULIN RATIO 1.2 (1.1-1.5); ALKALINE PHOSPHATASE 52 IU/L (46-116); BLOOD UREA NITROGEN 15 MG/DL (7-18); BUN/CREATININE RATIO 23.1 (6.6-38.0); CALCIUM 8.6 MG/DL (8.5-10.1); CHLORIDE 105 MMOL/L (99-107); CREATININE 0.65 MG/DL (0.40-0.90); PRE OP ALT 19 U/L (30-65); PRE OP ANION GAP 7 (8-16); PRE OP AST 12 U/L (10-37); PRE OP BILIRUB, TOTAL 0.8 MG/DL (0.0-1.0); PRE OP GLUCOSE 90 MG/DL (70-104); PRE OP POTASSIUM 3.8 MMOL/L (3.4-5.1); PRE OP SODIUM 138 MMOL/L (135-145); TOTAL CARBON DIOXIDE 25.7 MMOL/L (24-32); eGFR > 90 ML/MIN
[2020-09-30] VITALS (7 sets, daily range): BP systolic 99–115; BP diastolic 47–76
[~2020-09-30] VITALS: Ht 160 cm; Wt 55.3 kg
[~2020-09-30 07:05] MED LIST changes: +ACET-1025 PO; -GABA-530; +IBUP-24 PO; -PER5325T PO; +ceFAZolin 2gm in dextrose, iso 50 ML IV ONE; +famotidine 20mg tablet PO ONE; +ringers solution, lacted 1,000 ML IV SCH
[2020-09-30] MEDS ORDERED: rocuronium 10mg/ml inj IV ONE (09:41)
[2020-09-30] MEDS ORDERED: sevoflurane 250ml liquid IH ONE (09:41)
[2020-09-30] MEDS ORDERED: midazolam 2 mg/2 ml injection ONE (09:42)
[2020-09-30] MEDS ORDERED: methylene blue (5mg/ml) 50mg/10ml ampul IV ONE (09:42)
[2020-09-30] MEDS ORDERED: fentaNYL/PF 50MCG/1 ML 2ML syringe ONE (09:42)
[2020-09-30] MEDS ORDERED: propofol inj 20 ML IV ONE (09:46)
[2020-09-30] MEDS ORDERED: LIDOcaine 2% (20mg/ml) 5ml vial ONE (09:46)
[2020-09-30] MEDS ORDERED: ondansetron/PF 4mg/2ml inj IV PRN (09:55)
[2020-09-30] MEDS ORDERED: ringers solution, lacted 1,000 ML IV SCH (09:55)
[2020-09-30] MEDS ORDERED: meperidine/PF 25mg/ml syringe IV PRN ×2 (09:55)
[2020-09-30] MEDS ORDERED: HYDROmorphone/PF 0.2 MG/ML SYRINGE IV PRN ×2 (09:55)
[2020-09-30] MEDS ORDERED: LIDOcaine 1% 30ml preserv. free vial ONE (10:01)
[2020-09-30] MEDS ORDERED: BUPIVAcaine/PF 2.5 mg/ml (0.25%) 30ml vial ONE (10:01)
[2020-09-30] MEDS ORDERED: dexamethasone sod phosphate 4mg/ml inj. ONE (10:10)
[2020-09-30] MEDS ORDERED: ondansetron/PF 4mg/2ml inj ONE (10:10)
--- NOTE | 2020-09-30 11:07 | NUR ---
Received from OR via [facility] , accompanied by Anesthesiologist DANIEL and report given by Anesthesiolgist. PATIENT WITH 20G PIV IN RIGHT UE RUNNING LR AT 100. LOW ABDOMINAL DRESSINGS ARE CDI. RADHA DRAIN PRESENT WITH BULB SUCTIONED DOWN WITH NO LEAKS. Addendum: 09/30/20 at 1125 by Kevin Maldonado RN, RN Amended: Links added.
[2020-09-30] MEDS ORDERED: oxyCODONE/APAP 5-325mg tablet PO PRN (11:35)
--- NOTE | 2020-09-30 12:07 | NUR ---
PATIENT AND FAMILY AND THEY HAVE VERBALIZED UNDERSTANDING, OPPORTUNITY TO ASK QUESTIONS GIVEN AND PATIENT COMFORTABLE WITH DC. IV TAKEN OUT WITHOUT COMPLICATION. PATIENT HAS MET ALL DC CRITERIA FOR DC HOME. I HAVE REVIEWED D/C INSTRUCTIONS WITH OUT VIA WHEELCHAIR WHERE PATIENT WAS TAKEN HOME WITH ALL BELONGINGS. FAMILY GAVE PATIENT TRANSPORT HOME. Addendum: 09/30/20 at 1232 by Kevin Maldonado RN, RN Amended: Links added.
== END 2020-09-30 12:07 | disposition home or self-care (01) ==
LOC: PAS 07:05
PROVIDERS: ATTEND Surgery
DX: T81.89XA Other complications of procedures, not elsewhere classified, initial encounter (principal); Z79.899 Other long term (current) drug therapy; Z88.5 Allergy status to narcotic agent; Z88.8 Allergy status to other drugs, medicaments and biological substances; Z88.2 Allergy status to sulfonamides; Z90.49 Acquired absence of other specified parts of digestive tract; Z98.890 Other specified postprocedural states; Z72.89 Other problems related to lifestyle; Z90.710 Acquired absence of both cervix and uterus; Z20.828 Contact with and (suspected) exposure to other viral communicable diseases; Z82.3 Family history of stroke; Y83.8 Other surgical procedures as the cause of abnormal reaction of the patient, or of later complication, without mention of misadventure at the time of the procedure; Y92.89 Other specified places as the place of occurrence of the external cause
CPT/HCPCS: 13160; 36415; 80053; 82948; 85025; 87635; 93005; J1100; J1170; J2001; J2250; J2405; J2704; J3010; J3490; Q9968; A4215; A4618; A6550; A7000; J7120

== ENCOUNTER 2022-04-08 19:03 | Emergency (ER) | payer BC ==
[~2022-04-08] VITALS: Ht 160 cm; Wt 50.0 kg
[~2022-04-08 19:03] MED LIST changes: -ceFAZolin 2gm in dextrose, iso 50 ML IV ONE; -famotidine 20mg tablet PO ONE; -ringers solution, lacted 1,000 ML IV SCH
[2022-04-08 22:32] VITALS: BP 124/81
== END 2022-04-08 22:48 | disposition home or self-care (01) ==
LOC: ER 19:04
DX: R58 Hemorrhage, not elsewhere classified (principal); M79.662 Pain in left lower leg; M79.661 Pain in right lower leg; R51.9 Headache, unspecified; Z88.2 Allergy status to sulfonamides; Z88.5 Allergy status to narcotic agent; Z88.6 Allergy status to analgesic agent; Z79.899 Other long term (current) drug therapy
CPT/HCPCS: 93971; 99284